=== PATIENT | female | born 1990 | race Two or more races ===

== ENCOUNTER 2020-04-29 06:33 | Emergency (ER) | payer MEDICAID ==
[~2020-04-29] VITALS: Ht 157.5 cm; Wt 81.6 kg
[2020-04-29 07:10] LABS: Basophils # (auto) 0.1 10 ^3/uL (0-0.2); Basophils % (auto) 0.8 % (0.0-2.0); Eosinophils # (auto) 0.1 10 ^3/uL (0-0.8); Eosinophils % (auto) 1.6 % (0.0-7.0); Hematocrit 41.2 % (36.0-46.0); Hemoglobin 13.6 g/dL (12.2-16.2); Lymphocytes # (auto) 2.5 10 ^3/uL (0.4-5.4); Lymphocytes % (auto) 30.2 % (10.0-50.0); Mean Corpuscular Hemoglobin 31.3 pg (28.0-32.0); Mean Corpuscular Volume 94.7 fL (80.0-100.0); Monocytes # (auto) 0.4 10 ^3/uL (0-1.3); Monocytes % (auto) 4.5 % (0.0-12.0); Neutrophils # (auto) 5.2 10 ^3/uL (1.6-8.6); Neutrophils % (auto) 62.9 % (37.0-80.0); Platelet Count (auto) 273 10^3/uL (140-450); Red Blood Cells 4.35 10^6/uL (4.0-5.20); Red Cell Distribution Width 12.9 % (11.8-14.3); White Blood Cell 8.3 10^3/uL (4.4-10.8)
[2020-04-29 07:14] LABS: Urine Bacteria NONE SEEN /hpf (None Seen); Urine Blood Negative /uL (Negative); Urine Specific Gravity 1.021 (1.001-1.035); Urine WBC 1 /hpf (0 - 5)
[2020-04-29 07:31] LABS: Albumin 3.5 g/dL (3.4-5.0); BUN/Creatinine Ratio 13.9; Calcium 8.2 mg/dL (8.5-10.1); Potassium 3.7 mmol/L (3.5-5.1)
[2020-04-29 07:34] LABS: Bilirubin, Total 0.3 mg/dL (0.2-1.0); Total Protein 7.6 g/dL (6.4-8.2)
[2020-04-29] MEDS ORDERED: SODIUM CHLORIDE 0.9% 1,000 ML IV ONE ×2 (07:46)
[2020-04-29] MEDS ORDERED: MORPHINE SULFATE 4 MG/ML SYR/VIAL IV ONE (08:00)
[2020-04-29] MEDS ORDERED: ONDANSETRON HCL 4 MG/2 ML VIAL IV ONE (08:00)
[2020-04-29 10:01] VITALS: BP 137/82
== END 2020-04-29 10:11 | disposition home or self-care (01) ==
LOC: ER 06:33
DX: E86.0 Dehydration (principal); N83.8 Other noninflammatory disorders of ovary, fallopian tube and broad ligament
CPT/HCPCS: 36415; 71045; 74176; 80053; 81001; 81025; 83690; 84702; 85025; 96361; 96374; 96375; 99285; J2270; J2405; J7030

== ENCOUNTER 2020-05-26 01:40 | Inpatient (IN) | payer MEDICAID ==
[~2020-05-26] VITALS: Ht 167.6 cm; Wt 81.3 kg
[2020-05-26] MEDS ORDERED: MORPHINE SULFATE 4 MG/ML SYR/VIAL IV ONE (02:00)
[2020-05-26] MEDS ORDERED: SODIUM CHLORIDE 0.9% 1,000 ML IV ONE ×2 (02:00→04:00)
[2020-05-26] MEDS ORDERED: ONDANSETRON HCL 4 MG/2 ML VIAL IV ONE ×2 (02:00→04:00)
[2020-05-26 02:29] LABS: Basophils # (auto) 0.1 10 ^3/uL (0-0.2); Basophils % (auto) 0.4 % (0.0-2.0); Eosinophils # (auto) 0.1 10 ^3/uL (0-0.8); Eosinophils % (auto) 0.4 % (0.0-7.0); Hematocrit 42.7 % (36.0-46.0); Hemoglobin 14.5 g/dL (12.2-16.2); Lymphocytes # (auto) 1.7 10 ^3/uL (0.4-5.4); Lymphocytes % (auto) 11.5 % (10.0-50.0); Mean Corpuscular Hemoglobin 31.7 pg (28.0-32.0); Mean Corpuscular Volume 93.3 fL (80.0-100.0); Monocytes # (auto) 0.4 10 ^3/uL (0-1.3); Neutrophils # (auto) 12.3 10 ^3/uL (1.6-8.6); Neutrophils % (auto) 84.7 % (37.0-80.0); Platelet Count (auto) 317 10^3/uL (140-450); Red Blood Cells 4.58 10^6/uL (4.0-5.20); Red Cell Distribution Width 12.2 % (11.8-14.3); White Blood Cell 14.6 10^3/uL (4.4-10.8)
[2020-05-26 02:51] LABS: Albumin 3.9 g/dL (3.4-5.0); Calcium 9.3 mg/dL (8.5-10.1); Potassium 3.1 mmol/L (3.5-5.1)
[2020-05-26 02:53] LABS: Bilirubin, Total 1.4 mg/dL (0.2-1.0); Total Protein 8.7 g/dL (6.4-8.2)
[2020-05-26] MEDS ORDERED: HYDROmorphone HCL 2 MG/ML VL IV ONE ×3 (04:00→17:45)
[2020-05-26] MEDS ORDERED: metroNIDAZOLE 500MG/100ML 100 ML IV ONE (05:45)
[2020-05-26] MEDS ORDERED: cefTRIAXone 1GM/50ML D5W 50 ML IV ONE (05:45)
[2020-05-26] MEDS ORDERED: SODIUM CHLORIDE 0.9% 1,000 ML IV SCH (06:15)
[2020-05-26 06:59] LABS: Urine Bacteria NONE SEEN /hpf (None Seen); Urine Blood Negative /uL (Negative); Urine Hyaline Cast FEW /lpf (0 - 2); Urine Mucus FEW (None Seen); Urine Specific Gravity 1.023 (1.001-1.035); Urine WBC 5 /hpf (0 - 5)
--- NOTE | 2020-05-26 08:40 | NUR ---
Med Surgical admit from ER NANCY QUISPE admitted to Telemetry unit after SBAR received. Patient oriented to CAROLINE MINA, RN primary RN, unit, room, bed, and unit policies regarding patient care and visiting hours. Patient weighed by bedscale and encouraged to call if they need something. All questions and concerns addressed, patient verbalized understanding.
[2020-05-26] MEDS ORDERED: SOD CHL 0.45% WITH 20MEQ KCL 1,000 ML IV ONE (09:00)
[2020-05-26 09:42] VITALS: BP 130/71
[2020-05-26 10:36] LABS: INR 1.06 (0.9-1.15); Partial Thromboplastin Time 29.9 sec (23.0-31.2)
[2020-05-26] MEDS: levoFLOXacin 500MG 100 ML IV SCH (10:59)
[2020-05-26] MEDS: MORPHINE SULF INJ 2 MG/ML SYRINGE 1ML IV SCH ×4 (10:59→21:57)
[2020-05-26] MEDS ORDERED: IBUP800T24 PO (11:53)
[2020-05-26] MEDS ORDERED: [UNRECOGNIZED DRUG - CODE] PO (11:54)
[2020-05-26 12:00] VITALS: BP 117/74
[2020-05-26] MEDS: ONDANSETRON HCL 4 MG/2 ML VIAL IV SCH ×2 (12:00→18:43)
[2020-05-26] MEDS: ACETAMINOPHEN 325 MG TAB PO SCH ×2 (12:40→18:43)
[2020-05-26] MEDS ORDERED: PIPERACILLIN-TAZOB 3.375GM 100 ML IV SCH ×2 (14:00→16:00)
[2020-05-26] MEDS ORDERED: RHO (D) IMMUNE GLOBULIN 300 MCG INJ IM ONE (14:30)
[2020-05-26] MEDS: metroNIDAZOLE 500MG/100ML 100 ML IV SCH ×2 (14:35→21:57)
[2020-05-26 16:42] VITALS: BP 149/98
--- NOTE | 2020-05-26 19:00 | NUR ---
OPENING NOTE- NOC SHIFT PATIENT IS ALERT AND ORIENTED X4, ANSWERS IN COMPLETE SENTENCES. PATIENT IS SITTING UP IN BED, BED IS LOCKED AT LOWEST POSITION, BED RAILS UP X2 AND HEAD OF BED IS UP >30 DEGREES. PATIENT REPORTS PAIN 8/10; RIGHT UPPER ABDOMINAL QUADRANT RADIATING TO RIGHT UPPER BACK. PATIENT STATES "PAIN IS GETTING WORSE". DISCUSSED POC WITH PATIENT AND PAIN MANAGEMENT. INSTRUCTED PATIENT TO CALL USING CALL LIGHT PRN; PATIENT VERBALIZED UNDERSTANDING. WILL CONTINUE TO MONITOR Q1H AND PRN.
[2020-05-26 20:00] VITALS: BP 138/97
--- NOTE | 2020-05-26 20:50 | NUR ---
DR Navi TUCKER AT BEDSIDE. DOCTOR SPOKE WITH PATIENT REGARDING TRANSFER TO HIGHER LEVEL OF CARE; PATIENT AGREES WITH POC. WILL CARRY OUT NEW ORDERS.
[2020-05-26 22:00] VITALS: BP 138/97
--- NOTE | 2020-05-26 23:00 | NUR ---
PATIENT UP TO RESTROOM STANDBY ASSISTANCE FOR SAFETY PRECAUTIONS; STEADY GAIT NOTED.
[2020-05-27] MEDS: ONDANSETRON HCL 4 MG/2 ML VIAL IV SCH ×2 (01:48→06:00)
[2020-05-27] MEDS: MORPHINE SULFATE 4 MG/ML SYR/VIAL IV PRN ×4 (01:48→19:52)
[2020-05-27 05:00] VITALS: BP 127/75
[2020-05-27] MEDS: metroNIDAZOLE 500MG/100ML 100 ML IV SCH ×3 (05:06→22:45)
[2020-05-27] MEDS: ACETAMINOPHEN 325 MG TAB PO SCH ×4 (05:06→18:00)
[2020-05-27 05:44] LABS: Basophils # (auto) 0 10 ^3/uL (0-0.2); Basophils % (auto) 0.3 % (0.0-2.0); Eosinophils # (auto) 0 10 ^3/uL (0-0.8); Eosinophils % (auto) 0.2 % (0.0-7.0); Hematocrit 38.3 % (36.0-46.0); Hemoglobin 12.9 g/dL (12.2-16.2); Lymphocytes # (auto) 1.3 10 ^3/uL (0.4-5.4); Lymphocytes % (auto) 10.6 % (10.0-50.0); Mean Corpuscular Hemoglobin 31.9 pg (28.0-32.0); Mean Corpuscular Hgb Conc. 33.8 g/dL (32.0-36.0); Mean Corpuscular Volume 94.5 fL (80.0-100.0); Monocytes # (auto) 0.5 10 ^3/uL (0-1.3); Monocytes % (auto) 3.7 % (0.0-12.0); Neutrophils # (auto) 10.6 10 ^3/uL (1.6-8.6); Neutrophils % (auto) 85.2 % (37.0-80.0); Nucleated Red Blood Cells % 0.1 %; Platelet Count (auto) 259 10^3/uL (140-450); Red Blood Cells 4.05 10^6/uL (4.0-5.20); Red Cell Distribution Width 12.2 % (11.8-14.3); White Blood Cell 12.5 10^3/uL (4.4-10.8)
--- NOTE | 2020-05-27 05:45 | NUR ---
COVID SWAB WALKED TO LAB
[2020-05-27 06:09] LABS: Calcium 8.4 mg/dL (8.5-10.1); Potassium 3.1 mmol/L (3.5-5.1)
[2020-05-27 06:12] LABS: BUN/Creatinine Ratio 6.1; Bilirubin, Total 1.4 mg/dL (0.2-1.0); Total Protein 7.2 g/dL (6.4-8.2)
--- NOTE | 2020-05-27 08:00 | NUR ---
RECEIVED PATIENT ALERT AND ORIENTED X4, NOT IN DISTRESS, CLEAR SOUNDS IN BILATERAL LUNG LOBES, RR=20 SAT=97%, DEEP BREATHING AND COUGHING ENCOURAGED, DEMONSTRATED AND VERBALIZED UNDERSTANDING, DENIED SOB AND CHEST PAIN, HEART RATE=84, ABDOMEN SOFT WITH ACTIVE BS, KEEP NPO ORDERED, C/O RT. UPPER AND LOWER ABDOMINAL PAIN L=8/10 MORPHINE IV PRN WAS GIVEN PAIN DID NOT SUBSIDE REPORTED, SKIN INTACT WARM TO TOUCH, AMBULATED TO BR INDEPENDENTLY, BACK TO BED, TOLERATED WELL, RESTING ON BED, HEAD OF BED ELEVATED, BED ON LOW POSITION, RAILS UP X2, CALL LIGHT ON REACH, PENDING OR TODAY ORDERED, PRE OP WAS CONTACTED FOR FOLLOW UP, POTASSIUM L=3.1 THIS MORNING REPORTED, HOSPITALIST WAS PAGED FOR FOLLOW UP AND TO NOTIFY, WAITING FOR CALL BACK, WILL CONTINUE MONITORING.
[2020-05-27 08:33] VITALS: BP 129/70
--- NOTE | 2020-05-27 09:07 | NUR ---
PENDING POTASSIUM IV ORDERED BY DR. ZAVALA, PENDING SS PROCESS ORDERED, WILL CONTINUE MONITORING.
[2020-05-27] MEDS: POTASSIUM CHL 20MEQ/100ML 100 ML IV SCH ×2 (09:40→10:41)
[2020-05-27] MEDS: levoFLOXacin 500MG 100 ML IV SCH (09:40)
[2020-05-27] MEDS ORDERED: ONDANSETRON HCL 4 MG/2 ML VIAL IV SCH (10:00)
--- NOTE | 2020-05-27 10:07 | NUR ---
I faxed higher level of care order to [facility], [facility] and [facility].
--- NOTE | 2020-05-27 10:08 | NUR ---
I called Dr. Crescencio Chin to discuss the plan of care/transfer order for this patient-left message.
[2020-05-27] MEDS: ONDANSETRON HCL 4 MG/2 ML VIAL IV PRN ×2 (10:09→14:09)
--- NOTE | 2020-05-27 10:33 | NUR ---
I received a call from Shira at [facility], provided her with additional clinical information as requested.
--- NOTE | 2020-05-27 11:00 | NUR ---
PRE OP CONTACTED FOR PENDING SURGERY FOLLOW UP, SURGERY WAS CANCELLED REPORTED, WILL CONTINUE MONITORING.
[2020-05-27 12:33] VITALS: BP 124/79
--- NOTE | 2020-05-27 12:55 | NUR ---
I spoke with Dr. 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 I called [facility] and spoke with Effie-provided her with this additional clinical information. I also provided her with contact information for Dr. Lucas per her request.
[2020-05-27] MEDS ORDERED: POTASSIUM CHLORIDE 40 MEQ, LIDOCAINE 1% (LOCAL ANESTH.) 4 ML in SODIUM CHL 0.9% 100 ML IV ONE (14:30)
--- NOTE | 2020-05-27 15:16 | NUR ---
I called [facility] and spoke with Jameel-placed patient on will-call pending transfer to higher level of care. I spoke with [facility] Sales Market Leader Martha Alvarez-authorization number for transfer is [id number], authorization number for [facility] is [id number]. I called [facility] and left message for storehouse clerk asking about bed availability. I called [facility] and left message as well.
--- NOTE | 2020-05-27 16:00 | NUR ---
C/o sever abdominal pain l=06/07, not due for Morphine IV Q6 hours, Dr. Chin was called to be notified and left a message, waiting for call back.
--- NOTE | 2020-05-27 16:30 | NUR ---
WAS PAGED FOR FOLLOWUP AND UPDATES REQUESTED BY DR. CAITLIN Mcelroy, WAITING FOR CALL BACK.
[2020-05-27 16:33] VITALS: BP 121/80
--- NOTE | 2020-05-27 18:40 | NUR ---
Dr. Chin was called to be notified and left a message, waiting for call back.
--- NOTE | 2020-05-27 19:00 | NUR ---
OPENING NOTE- NOC SHIFT ASSUMED PATIENT CARE. PATIENT IS ALERT AND ORIENTED X4, MAKES GOOD EYE CONTACT. PATIENT IS SITTING AT EDGE OF BED BREATHING DEEPLY. PATIENT IS CRYING AND REPORTS 10/10 RIGHT UPPER QUADRANT PAIN WHICH RADIATES TO BACK. PAIN MEDICATION IS NOT DUE AT THIS TIME; WILL PAGE DOCTOR CAITLIN. PROVIDED PATIENT WITH HEAT PACKS. DISCUSSED POC WITH PATIENT AND INSTRUCTED PATIENT TO CALL PRN USING CALL LIGHT; PATIENT VERBALIZED UNDERSTANDING.
--- NOTE | 2020-05-27 19:18 | NUR ---
RESTING ON BED, HEAD OF BED ELEVATED, BED ON LOW POSITION, RAILS UP X2, CALL LIGHT ON REACH, REPORT WAS GIVEN TO THE BUREAU DIRECTOR RN.
[2020-05-27 20:00] VITALS: BP 130/85
--- NOTE | 2020-05-27 20:30 | NUR ---
DR Crescencio TUCKER AT BEDSIDE MADE DOCTOR AWARE THAT PATIENT HAS NOT RECEIVED IV POTASSIUM ORDERED DUE TO PATIENT BEING UNABLE TO TOLERATE POTASSIUM THROUGH VEIN; WILL CARRY OUT NEW POTASSIUM PO ORDER. NEW PAIN MEDICATION ORDERS RECEIVED.
--- NOTE | 2020-05-27 21:30 | NUR ---
IV insertion IV access obtained, via clean sterile technique by inserting 22 gauge catheter at LEFT AC after 1 attempt(s). IV secured properly. No trauma to site. Patient tolerated well.
--- NOTE | 2020-05-27 21:35 | NUR ---
IV removal IV AT LEFT FOREARM DC'd with clean sterile technique, catheter fully intact. Pressure dressing applied to site. Patient tolerated well.
[2020-05-27 22:00] VITALS: BP 130/85
[2020-05-27] MEDS: POTASSIUM CHL 20 Meq TABLET PO SCH (22:45)
[2020-05-27] MEDS: HYDROmorphone HCL 2 MG/ML VL IV PRN (22:46)
[2020-05-28] VITALS (7 sets, daily range): BP systolic 100–137; BP diastolic 61–88
[2020-05-28] MEDS: POTASSIUM CHL 20 Meq TABLET PO SCH ×2 (01:41→06:46)
[2020-05-28] MEDS: HYDROmorphone HCL 2 MG/ML VL IV PRN ×5 (02:52→20:03)
[2020-05-28] MEDS: ACETAMINOPHEN 325 MG TAB PO SCH ×4 (06:00→21:51)
[2020-05-28] MEDS: metroNIDAZOLE 500MG/100ML 100 ML IV SCH ×3 (06:46→21:52)
[2020-05-28 07:00] LABS: Basophils # (auto) 0 10 ^3/uL (0-0.2); Basophils % (auto) 0.2 % (0.0-2.0); Eosinophils # (auto) 0.1 10 ^3/uL (0-0.8); Eosinophils % (auto) 0.8 % (0.0-7.0); Hematocrit 36.9 % (36.0-46.0); Hemoglobin 12.1 g/dL (12.2-16.2); Lymphocytes # (auto) 2.2 10 ^3/uL (0.4-5.4); Lymphocytes % (auto) 16.7 % (10.0-50.0); Mean Corpuscular Hemoglobin 31.4 pg (28.0-32.0); Mean Corpuscular Hgb Conc. 32.8 g/dL (32.0-36.0); Mean Corpuscular Volume 95.7 fL (80.0-100.0); Monocytes # (auto) 0.9 10 ^3/uL (0-1.3); Monocytes % (auto) 6.6 % (0.0-12.0); Neutrophils # (auto) 9.8 10 ^3/uL (1.6-8.6); Neutrophils % (auto) 75.7 % (37.0-80.0); Nucleated Red Blood Cells % 0.1 %; Platelet Count (auto) 256 10^3/uL (140-450); Red Blood Cells 3.85 10^6/uL (4.0-5.20); Red Cell Distribution Width 12.6 % (11.8-14.3)
[2020-05-28 07:18] LABS: Potassium 3.2 mmol/L (3.5-5.1)
[2020-05-28 07:27] LABS: Albumin 2.6 g/dL (3.4-5.0); BUN/Creatinine Ratio 4.3; Calcium 8.4 mg/dL (8.5-10.1); Total Protein 6.9 g/dL (6.4-8.2)
--- NOTE | 2020-05-28 07:50 | NUR ---
Opening Shift Note Assumed care of patient, awake and alert. No S/S of distress/SOB or pain. Instructed on POC and to call for assist PRN, will continue to monitor for changes Q1hr and PRN.
--- NOTE | 2020-05-28 08:20 | NUR ---
ct called regarding pt ct abdomen informed of patient iv size and sensitivity of veins
[2020-05-28] MEDS ORDERED: IOHEXOL 300 MG/ML 100ML BOTTLE IJ ONE (08:22)
--- NOTE | 2020-05-28 08:22 | NUR ---
md tay called wanted to add possible right oopharectomy onto consent, pt has not sighned any consnts due to pt stating the procedure has not been explained to her
--- NOTE | 2020-05-28 08:32 | NUR ---
RECEIVED PATIENT ALERT AND ORIENTED X4, NOT IN DISTRESS, CLEAR SOUNDS IN BILATERAL LUNG LOBES, RR=18 SAT=98%, DEEP BREATHING AND COUGHING ENCOURAGED, DEMONSTRATED AND VERBALIZED UNDERSTANDING, DENIED SOB AND CHEST PAIN, HEART RATE=84, ABDOMEN SOFT WITH ACTIVE BS, KEEP NPO ORDERED, C/O RT. UPPER AND LOWER ABDOMINAL PAIN L=8/10 DILAUDID IV PRN WAS GIVEN BY PARTS DESIGNER RN REPORTED, SKIN INTACT WARM TO TOUCH, RESTING ON BED, HEAD OF BED ELEVATED, BED ON LOW POSITION, RAILS UP X2, CALL LIGHT ON REACH, PENDING CT ABDOMEN TODAY ORDERED, POTASSIUM L=3.2 THIS MORNING REPORTED, MD IS A WAR, WILL CONTINUE MONITORING. Addendum: 05/28/20 at 1939 by Ronda Butler RN WRONG PATIENT
--- NOTE | 2020-05-28 09:05 | NUR ---
ioana bedside with patient explaining july and possible oophorectomy due to access blockage to gallbladder he may have to remove mass, explained to patient she should be transferred due to possible cancer in mass, patient decided she wants to be transferred and have both procedures done at another hospital with an oncologist present, explained that transferring is a long process, pt verbalized understanding, [facility] nurse case management called updated her that pt decided not to have surgery here and wants to transfer
[2020-05-28] MEDS: levoFLOXacin 500MG 100 ML IV SCH (09:16)
--- NOTE | 2020-05-28 09:50 | NUR ---
I received a call from Boom at [facility] letting me know that they can not present this case to their surgical oncologist because they will want a biopsy to have been done. I spoke with Dr. Navi Chin regarding the plan of care for this patient and to let him know what Libra Miller is asking for. I also let him know that I would be reaching out to other facilities as well. Dr. Chin suggested that I give Libra Lucero's contact information. I called [facility] to speak with Boom-he is on the other line and will give me a call back.
[2020-05-28] MEDS: ONDANSETRON HCL 4 MG/2 ML VIAL IV PRN ×2 (11:30→20:03)
--- NOTE | 2020-05-28 12:26 | NUR ---
Nutrition Assessment Notes Please see attached link for complete assessment Est energy needs BW [id number] kcal (23-25kcal/kg BW) Est protein need 79-86g (1-1.1g/kg BW). will reassess prn Addendum: 05/28/20 at [address] Amended: Links added.
--- NOTE | 2020-05-28 12:31 | NUR ---
I called [facility] and spoke with Evelin-provided her with clinical information/contact information for Dr. Navi Chin as well as the nurse's station-she is going to call her covering and lining supervisor to see if this is a patient they can accommodate-she will give me a call back. I called [facility] again and left message for Boom.
--- NOTE | 2020-05-28 14:07 | NUR ---
I called [facility] and spoke with Boom-provided him with contact information for Dr. Lucero-per Boom he will present this case to his general surgeon and will give me a call back. I received a call from Evelin at [facility] letting me know that they can not accommodate this patient.
--- NOTE | 2020-05-28 19:00 | NUR ---
OPENING NOTE- NOC SHIFT PATIENT IS ALERT AND ORIENTED X4. PATIENT IS SITTING UP IN BED. PATIENT REPORTS ONGOING PAIN TO ABDOMEN THROUGHOUT THE DAY AND STATES THAT SHE FEELS NAUSEOUS. DISCUSSED POC WITH PATIENT AND INSTRUCTED PATIENT TO CALL PRN; PATIENT VERBALIZED UNDERSTANDING. WILL CONTINUE TO MONITOR Q1 HR AND PRN. PROVIDED HEAT PACKS FOR PATIENT; PATIENT STATES SHE FEELS BETTER WHEN SHE APPLIES THEM TO ABDOMEN.
[2020-05-28] MEDS ORDERED: POTASSIUM CHLORIDE 40 MEQ, LIDOCAINE 1% (LOCAL ANESTH.) 4 ML in SODIUM CHL 0.9% 100 ML IV ONE (19:45)
--- NOTE | 2020-05-28 20:00 | NUR ---
PATIENT STATES THAT SHE BEGAN HER MENSTRUAL PERIOD TODAY. PADS WERE BROUGHT TO LOBBY FROM [facility]ILY [facility].
[2020-05-29] MEDS: ONDANSETRON HCL 4 MG/2 ML VIAL IV PRN ×3 (00:12→13:28)
[2020-05-29] MEDS: HYDROmorphone HCL 2 MG/ML VL IV PRN ×5 (00:12→18:00)
[2020-05-29 05:00] VITALS: BP 128/82
[2020-05-29 05:51] LABS: Basophils # (auto) 0 10 ^3/uL (0-0.2); Basophils % (auto) 0.2 % (0.0-2.0); Eosinophils # (auto) 0.1 10 ^3/uL (0-0.8); Hematocrit 34.7 % (36.0-46.0); Hemoglobin 11.7 g/dL (12.2-16.2); Lymphocytes # (auto) 1.5 10 ^3/uL (0.4-5.4); Lymphocytes % (auto) 19.9 % (10.0-50.0); Mean Corpuscular Hemoglobin 31.8 pg (28.0-32.0); Mean Corpuscular Hgb Conc. 33.8 g/dL (32.0-36.0); Monocytes # (auto) 0.6 10 ^3/uL (0-1.3); Monocytes % (auto) 8.7 % (0.0-12.0); Neutrophils # (auto) 5.1 10 ^3/uL (1.6-8.6); Neutrophils % (auto) 69.2 % (37.0-80.0); Nucleated Red Blood Cells % 0.1 %; Platelet Count (auto) 262 10^3/uL (140-450); Red Blood Cells 3.69 10^6/uL (4.0-5.20); Red Cell Distribution Width 12.4 % (11.8-14.3); White Blood Cell 7.3 10^3/uL (4.4-10.8)
[2020-05-29] MEDS: ACETAMINOPHEN 325 MG TAB PO SCH ×4 (06:00→18:04)
[2020-05-29 06:20] LABS: Potassium 3.5 mmol/L (3.5-5.1)
[2020-05-29 06:35] LABS: Albumin 2.6 g/dL (3.4-5.0); BUN/Creatinine Ratio 8.6; Bilirubin, Total 0.6 mg/dL (0.2-1.0); Calcium 8.5 mg/dL (8.5-10.1); Total Protein 6.4 g/dL (6.4-8.2)
[2020-05-29] MEDS: metroNIDAZOLE 500MG/100ML 100 ML IV SCH ×2 (07:14→15:03)
--- NOTE | 2020-05-29 07:15 | NUR ---
ENDORSED PATIENT CARE TO DAY SHIFT NURSE PIETRO RN. PATIENT IS IN BED. NO S/SX OF DISTRESS OR SOB.
[2020-05-29 08:00] VITALS: BP 129/76
[2020-05-29 08:50] VITALS: BP 129/79
[2020-05-29] MEDS: levoFLOXacin 500MG 100 ML IV SCH (08:59)
[2020-05-29] MEDS ORDERED: POTASSIUM EFFERVESENT TAB 25 MEQ PO SCH (10:00)
[2020-05-29] MEDS ORDERED: ENOXAPARIN SOD 40 MG/0.4 ML SYRINGE SC SCH (10:00)
[2020-05-29] MEDS ORDERED: PANTOPRAZOLE 40 MG TAB PO SCH (10:00)
[2020-05-29 10:17] LABS: Basophils # (auto) 0 10 ^3/uL (0-0.2); Basophils % (auto) 0.2 % (0.0-2.0); Eosinophils # (auto) 0.1 10 ^3/uL (0-0.8); Eosinophils % (auto) 1.4 % (0.0-7.0); Hemoglobin 12.4 g/dL (12.2-16.2); Lymphocytes # (auto) 1.1 10 ^3/uL (0.4-5.4); Lymphocytes % (auto) 14.8 % (10.0-50.0); Mean Corpuscular Hemoglobin 31.4 pg (28.0-32.0); Mean Corpuscular Hgb Conc. 33.5 g/dL (32.0-36.0); Mean Corpuscular Volume 93.7 fL (80.0-100.0); Monocytes # (auto) 0.5 10 ^3/uL (0-1.3); Monocytes % (auto) 7.2 % (0.0-12.0); Neutrophils # (auto) 5.8 10 ^3/uL (1.6-8.6); Neutrophils % (auto) 76.4 % (37.0-80.0); Platelet Count (auto) 287 10^3/uL (140-450); Red Blood Cells 3.94 10^6/uL (4.0-5.20); Red Cell Distribution Width 12.5 % (11.8-14.3); White Blood Cell 7.6 10^3/uL (4.4-10.8)
--- NOTE | 2020-05-29 12:53 | NUR ---
1245 05/29/20 - Faxed to [facility] at [phone] the completed Transfer Back Agreement and the facility authorization. Addendum: 05/29/20 at 1619 by Elle Saavedra RN, CM [id number] 05/29/20 - Contacted by [facility] transfer center coordinator Boom who provided assigned bed unit 4100, room 4 bed 2, report can be called to [phone], please include all imaging and clincals with patient. Scheduled pickle maker time with [facility] is 1830. Addendum: 05/29/20 at 1621 by Elle Saavedra RN, CM 1500 05/29/20 - Informed nurse Van caring for patient of all information stated above
[2020-05-29 13:00] VITALS: BP 121/79
[2020-05-29 16:22] VITALS: BP 129/76
[2020-05-29 16:27] VITALS: BP 138/95
--- NOTE | 2020-05-29 17:05 | NUR ---
CALLED [facility] VIA [phone] REPORT GIVEN TO MARISOL DIEHL, ALL QUESTIONS AND CONCERNS ADDRESSED.
--- NOTE | 2020-05-29 19:06 | NUR ---
TRANSFERRED TO [facility], PT LEFT UNIT WITH ALL BELONGING, ACCOMPANIED BY 2 curriculum supervisor, NO ACUTE DISTRESS NOTED AT DEPARTURE.
== END 2020-05-29 19:06 | disposition short-term general hospital (02) ==
LOC: EDBD 01:40 → ER 01:42 → OVERFLOW 01:43 → WEST WING 08:32
PROVIDERS: ADMIT Internal Medicine; ATTEND Internal Medicine
DX: K80.62 Calculus of gallbladder and bile duct with acute cholecystitis without obstruction (principal); E87.6 Hypokalemia; E87.1 Hypo-osmolality and hyponatremia; K52.9 Noninfective gastroenteritis and colitis, unspecified; N94.89 Other specified conditions associated with female genital organs and menstrual cycle; D72.829 Elevated white blood cell count, unspecified; Z82.49 Family history of ischemic heart disease and other diseases of the circulatory system; Z20.828 Contact with and (suspected) exposure to other viral communicable diseases; Z80.43 Family history of malignant neoplasm of testis; N83.201 Unspecified ovarian cyst, right side
CPT/HCPCS: 36415; 74176; 74177; 74181; 76705; 80053; 81001; 81025; 82150; 82378; 83690; 85025; 85610; 85730; 86301; 86304; 86850; 86900; 86901; 87426; G0378; J0696; J1956; J2001; J2405; J2543; J3480; J3490